=== PATIENT | female | born 1990 ===

== ENCOUNTER 2023-05-14 21:43 | Emergency (ER) | payer OTHER ==
[~2023-05-14] VITALS: Ht 165.1 cm; Wt 83.6 kg
[2023-05-14 23:42] LABS: Basophils # (auto) 0 10 ^3/uL (0-0.2); Basophils % (auto) 0.4 % (0.0-2.0); Eosinophils # (auto) 0 10 ^3/uL (0-0.8); Eosinophils % (auto) 0.2 % (0.0-7.0); Hematocrit 34.6 % (36.0-46.0); Hemoglobin 11.8 g/dL (12.2-16.2); Lymphocytes # (auto) 1.3 10 ^3/uL (0.4-5.4); Lymphocytes % (auto) 18.1 % (10.0-50.0); Mean Corpuscular Hemoglobin 30.8 pg (28.0-32.0); Mean Corpuscular Volume 90.4 fL (80.0-100.0); Monocytes # (auto) 0.5 10 ^3/uL (0-1.3); Monocytes % (auto) 6.9 % (0.0-12.0); Neutrophils # (auto) 5.2 10 ^3/uL (1.6-8.6); Neutrophils % (auto) 74.4 % (37.0-80.0); Nucleated Red Blood Cells % 0.1 %; Red Blood Cells 3.83 10^6/uL (4.0-5.20); Red Cell Distribution Width 15.3 % (11.8-14.3)
[2023-05-15 00:02] LABS: Albumin 3.7 g/dL (3.4-5.0); Potassium 4.1 mmol/L (3.5-5.1)
[2023-05-15 00:07] LABS: BUN/Creatinine Ratio 16.9 (10.0-20.0); Bilirubin, Total 0.5 mg/dL (0.2-1.0); Total Protein 7.5 g/dL (6.4-8.2)
[2023-05-15 04:28] VITALS: BP 105/69
== END 2023-05-15 04:34 | disposition home or self-care (01) ==
LOC: ER 21:43
DX: O20.0 Threatened abortion (principal); N93.9 Abnormal uterine and vaginal bleeding, unspecified; D64.9 Anemia, unspecified; Z88.6 Allergy status to analgesic agent; Z3A.01 Less than 8 weeks gestation of pregnancy
CPT/HCPCS: 36415; 76801; 76817; 80053; 84702; 85025

== ENCOUNTER → 2023-06-13 | Outpatient (CLI) | payer OTHER | END | disposition home or self-care (01) | LOC: LAB 09:49 | PROVIDERS: ATTEND Obstetrics & Gynecology | DX: O03.9 Complete or unspecified spontaneous abortion without complication (principal); Z3A.00 Weeks of gestation of pregnancy not specified | CPT/HCPCS: 36415; 84702 ==

== ENCOUNTER → 2024-10-07 | Outpatient (CLI) | payer OTHER ==
[2024-10-07 09:24] LABS: Urine Bacteria FEW /hpf (None Seen); Urine Blood 1+ /uL (Negative); Urine Clarity Turbid (Clear); Urine Color Light-Yellow (Yellow); Urine Mucus FEW (None Seen); Urine Protein, UAD Negative (Negative); Urine Specific Gravity 1.017 (1.001-1.035); Urine Urobilinogen Normal (Negative); Urine WBC 6 /hpf (0 - 5)
[2024-10-07 09:25] LABS: Basophils # (auto) 0 10 ^3/uL (0-0.2); Basophils % (auto) 0.4 % (0.0-2.0); Eosinophils # (auto) 0 10 ^3/uL (0-0.8); Eosinophils % (auto) 0.8 % (0.0-7.0); Hematocrit 31.5 % (36.0-46.0); Lymphocytes # (auto) 1.4 10 ^3/uL (0.4-5.4); Lymphocytes % (auto) 28.2 % (10.0-50.0); Mean Corpuscular Hemoglobin 24.2 pg (28.0-32.0); Mean Corpuscular Hgb Conc. 31.8 g/dL (32.0-36.0); Mean Corpuscular Volume 76.2 fL (80.0-100.0); Monocytes # (auto) 0.5 10 ^3/uL (0-1.3); Monocytes % (auto) 10.3 % (0.0-12.0); Neutrophils % (auto) 60.3 % (37.0-80.0); Nucleated Red Blood Cells % 0.1 %; Platelet Count (auto) 289 10^3/uL (140-450); Red Blood Cells 4.13 10^6/uL (4.0-5.20); Red Cell Distribution Width 17.8 % (11.8-14.3)
[2024-10-07 09:27] LABS: Partial Thromboplastin Time 24.5 SEC (24.5-34.5); Prothrombin Time 10.6 sec (9.3-11.8)
[2024-10-07 11:06] LABS: Alanine Aminotransferase 17 U/L (7-40); Albumin 4.6 g/dL (3.2-4.8); Alkaline Phosphatase 77 U/L (46-116); Anion Gap 8 (5-15); Aspartate Aminotransferase 15 U/L (13-40); BUN/Creatinine Ratio 15.5 (10.0-20.0); Blood Urea Nitrogen 11 mg/dL (9-23); Calcium 10.1 mg/dL (8.7-10.4); Carbon Dioxide 24 mmol/L (20-31); Chloride 109 mmol/L (98-107); Glucose 100 mg/dL (74-106); LDL Cholesterol 70 mg/dL (< 100); Potassium 4.3 mmol/L (3.5-5.1); Sodium 141 mmol/L (136-145); Triglycerides 45 mg/dL (< 150)
[2024-10-07 11:07] LABS: Bilirubin, Total 0.5 mg/dL (0.2-1.0); Cholesterol 161 mg/dL (< 200); HDL Cholesterol 77 mg/dL (40-59); Total Protein 7.4 g/dL (5.7-8.2)
[2024-10-07 12:47] LABS: Folate (Folic Acid) 15.16 ng/mL (>5.38)
[2024-10-08 08:06] LABS: RPR Non Reactive (Non Reactive); Thyroxine (T4) 8.3 ug/dL (4.5-12.0)
== END | disposition home or self-care (01) ==
LOC: LAB 08:50
DX: Z00.01 Encounter for general adult medical examination with abnormal findings
CPT/HCPCS: 36415; 80053; 80061; 80074; 81001; 82306; 82607; 82746; 83036; 84436; 84443; 85025; 85610; 85730; 86592; 86703

== ENCOUNTER → 2025-01-13 | Outpatient (CLI) | payer OTHER ==
[2025-01-13 08:17] LABS: Basophils # (auto) 0 10 ^3/uL (0-0.2); Basophils % (auto) 0.8 % (0.0-2.0); Eosinophils # (auto) 0 10 ^3/uL (0-0.8); Eosinophils % (auto) 1.2 % (0.0-7.0); Hematocrit 36.4 % (36.0-46.0); Hemoglobin 12.7 g/dL (12.2-16.2); Lymphocytes # (auto) 1.5 10 ^3/uL (0.4-5.4); Mean Corpuscular Hemoglobin 30.4 pg (28.0-32.0); Mean Corpuscular Hgb Conc. 34.8 g/dL (32.0-36.0); Mean Corpuscular Volume 87.4 fL (80.0-100.0); Monocytes # (auto) 0.4 10 ^3/uL (0-1.3); Monocytes % (auto) 10.1 % (0.0-12.0); Neutrophils # (auto) 1.9 10 ^3/uL (1.6-8.6); Neutrophils % (auto) 49.9 % (37.0-80.0); Nucleated Red Blood Cells % 0.3 %; Platelet Count (auto) 276 10^3/uL (140-450); Red Blood Cells 4.16 10^6/uL (4.0-5.20); Red Cell Distribution Width 21.7 % (11.8-14.3); White Blood Cell 3.8 10^3/uL (4.4-10.8)
[2025-01-13 08:28] LABS: Triglycerides 41 mg/dL (< 150)
[2025-01-13 08:29] LABS: Cholesterol 181 mg/dL (< 200); LDL Cholesterol 77 mg/dL (< 100)
[2025-01-13 08:38] LABS: HDL Cholesterol 87 mg/dL (40-59)
[2025-01-13 10:44] LABS: % Iron Saturation 21.1 % (15-50)
[2025-01-13 10:52] LABS: Folate (Folic Acid) 13.07 ng/mL (>5.38)
== END | disposition home or self-care (01) ==
LOC: LAB 07:23
PROVIDERS: ATTEND Nurse Practitioner Family
DX: E78.5 Hyperlipidemia, unspecified (principal); D64.9 Anemia, unspecified; R73.03 Prediabetes
CPT/HCPCS: 36415; 80061; 82306; 82607; 82728; 82746; 83036; 83540; 83550; 84443; 85025

== ENCOUNTER → 2025-05-11 | Outpatient (CLI) | payer OTHER ==
[2025-05-11 09:22] LABS: Basophils # (auto) 0 10 ^3/uL (0-0.2); Basophils % (auto) 0.6 % (0.0-2.0); Eosinophils # (auto) 0 10 ^3/uL (0-0.8); Eosinophils % (auto) 0.9 % (0.0-7.0); Hematocrit 35.8 % (36.0-46.0); Hemoglobin 12.3 g/dL (12.2-16.2); Lymphocytes # (auto) 1.3 10 ^3/uL (0.4-5.4); Lymphocytes % (auto) 34.4 % (10.0-50.0); Mean Corpuscular Hemoglobin 32.6 pg (28.0-32.0); Mean Corpuscular Hgb Conc. 34.4 g/dL (32.0-36.0); Mean Corpuscular Volume 94.8 fL (80.0-100.0); Monocytes # (auto) 0.3 10 ^3/uL (0-1.3); Monocytes % (auto) 9.2 % (0.0-12.0); Neutrophils # (auto) 2.1 10 ^3/uL (1.6-8.6); Neutrophils % (auto) 54.9 % (37.0-80.0); Nucleated Red Blood Cells % 0.1 %; Platelet Count (auto) 244 10^3/uL (140-450); Red Blood Cells 3.78 10^6/uL (4.0-5.20); Red Cell Distribution Width 13.5 % (11.8-14.3); White Blood Cell 3.8 10^3/uL (4.4-10.8)
[2025-05-11 09:41] LABS: Alanine Aminotransferase 17 U/L (7-40); Albumin 4.3 g/dL (3.2-4.8); Alkaline Phosphatase 67 U/L (46-116); Anion Gap 8 (5-15); Aspartate Aminotransferase 18 U/L (13-40); BUN/Creatinine Ratio 15.9 (10.0-20.0); Blood Urea Nitrogen 11 mg/dL (9-23); Carbon Dioxide 27 mmol/L (20-31); Chloride 107 mmol/L (98-107); Cholesterol 181 mg/dL (< 200); Glucose 99 mg/dL (74-106); Sodium 142 mmol/L (136-145); Total Protein 6.7 g/dL (5.7-8.2); Triglycerides 49 mg/dL (< 150)
[2025-05-11 09:42] LABS: Bilirubin, Total 0.7 mg/dL (0.2-1.0)
[2025-05-11 09:53] LABS: LDL Cholesterol 85 mg/dL (< 100)
[2025-05-11 10:00] LABS: HDL Cholesterol 83 mg/dL (40-59)
[2025-05-11 10:08] LABS: % Iron Saturation 19.1 % (15-50)
[2025-05-11 10:51] LABS: Urine Bacteria MANY /hpf (None Seen); Urine Blood 2+ /uL (Negative); Urine Clarity Turbid (Clear); Urine Color Light-Yellow (Yellow); Urine Mucus FEW (None Seen); Urine Protein, UAD Negative (Negative); Urine Specific Gravity 1.021 (1.001-1.035); Urine Squamous Epithelial Cell MOD /hpf (<5); Urine Urobilinogen Normal (Negative); Urine WBC 17 /HPF (0-5); Urine pH 5.5 (5.0-9.0)
[2025-05-11 11:27] LABS: Ferritin 10.7 ng/mL (10-291)
== END | disposition home or self-care (01) ==
LOC: LAB 08:55
PROVIDERS: ATTEND Nurse Practitioner Family
DX: E78.5 Hyperlipidemia, unspecified (principal); E55.9 Vitamin D deficiency, unspecified; D64.9 Anemia, unspecified; R73.03 Prediabetes
CPT/HCPCS: 36415; 80053; 80061; 81001; 82306; 82607; 82728; 83036; 83540; 83550; 84443; 85025

== ENCOUNTER → 2025-08-19 | Outpatient (CLI) | payer OTHER ==
[2025-08-19 13:29] LABS: Thyroid Stimulating Hormone 0.94 uIU/mL (0.55-4.78)
[2025-08-19 13:31] LABS: Follicle Stimulating Hormone 0.44 IU/L (SEE BELOW)
[2025-08-19 13:35] LABS: Alanine Aminotransferase 26 U/L (7-40); Alkaline Phosphatase 88 U/L (46-116); Anion Gap 9 (5-15); BUN/Creatinine Ratio 14.5 (10.0-20.0); Calcium 9.3 mg/dL (8.7-10.4); Carbon Dioxide 24 mmol/L (20-31); Chloride 107 mmol/L (98-107); Glucose 86 mg/dL (74-106); Potassium 4.7 mmol/L (3.5-5.1); Sodium 140 mmol/L (136-145)
[2025-08-19 13:36] LABS: Albumin 4.1 g/dL (3.2-4.8); Total Protein 6.7 g/dL (5.7-8.2)
[2025-08-19 13:38] LABS: Bilirubin, Total 0.6 mg/dL (0.2-1.0)
[2025-08-19 13:43] LABS: Beta HCG, Quantitative 120805.8 mIU/mL (1.5-4.2)
[2025-08-19 13:46] LABS: Blood Urea Nitrogen 9 mg/dL (9-23)
== END | disposition home or self-care (01) ==
LOC: LAB 11:38
PROVIDERS: ATTEND Obstetrics & Gynecology
DX: N93.9 Abnormal uterine and vaginal bleeding, unspecified (principal)
CPT/HCPCS: 36415; 80053; 82670; 83001; 83002; 84402; 84403; 84443; 84702

== ENCOUNTER 2025-09-07 07:18 | Outpatient (CLI) | payer OTHER ==
[2025-09-07 08:08] LABS: Hematocrit 36.1 % (36.0-46.0); Hemoglobin 12.5 g/dL (12.2-16.2); Mean Corpuscular Hemoglobin 32.1 pg (28.0-32.0); Mean Corpuscular Volume 92.8 fL (80.0-100.0); Nucleated Red Blood Cells % 0.1 %
== END 2025-09-07 17:00 | disposition home or self-care (01) ==
LOC: LAB 07:18
DX: Z34.80 Encounter for supervision of other normal pregnancy, unspecified trimester (principal); Z3A.00 Weeks of gestation of pregnancy not specified
CPT/HCPCS: 36415; 84702; 85025

== ENCOUNTER 2025-09-09 11:11 | Outpatient (CLI) | payer OTHER ==
[2025-09-09 12:13] LABS: Hematocrit 35.5 % (36.0-46.0); Hemoglobin 12.3 g/dL (12.2-16.2); Mean Corpuscular Hemoglobin 32.4 pg (28.0-32.0); Mean Corpuscular Volume 93.2 fL (80.0-100.0); Nucleated Red Blood Cells % 0.1 %
[2025-09-09 13:11] LABS: Alanine Aminotransferase 25 U/L (7-40); Albumin 4.0 g/dL (3.2-4.8); Alkaline Phosphatase 88 U/L (46-116); Anion Gap 8 (5-15); BUN/Creatinine Ratio 15.1 (10.0-20.0); Calcium 9.4 mg/dL (8.7-10.4); Carbon Dioxide 26 mmol/L (20-31); Chloride 103 mmol/L (98-107); Glucose 81 mg/dL (74-106); Potassium 4.2 mmol/L (3.5-5.1); Sodium 137 mmol/L (136-145); Total Protein 7.0 g/dL (5.7-8.2)
[2025-09-09 13:12] LABS: Bilirubin, Total 0.5 mg/dL (0.2-1.0)
[2025-09-09 13:13] LABS: Free T4 (Free Thyroxine) 1.23 ng/dL (0.89-1.76); Thyroid Stimulating Hormone 1.8 uIU/mL (0.55-4.78)
[2025-09-09 13:20] LABS: Amphetamine Screen, Urine Neg (NEGATIVE); Barbiturate Scree,Urine Neg (NEGATIVE); Benzodiazephine Screen, Urine Neg (NEGATIVE); Cannabinoid Screen, Urine Neg (NEGATIVE); Cocaine Screen, Urine Neg (NEGATIVE); Opiate Scree,Urine Neg (NEGATIVE); Phencyclidine Screen, Urine Neg (NEGATIVE)
[2025-09-09 13:21] LABS: Blood Urea Nitrogen 8 mg/dL (9-23)
[2025-09-09 13:33] LABS: Beta HCG, Quantitative 136161.3 mIU/mL (1.5-4.2)
[2025-09-11 05:08] LABS: Chlamydia Trachomatis, NAA Negative (Negative); Neisseria gonorrhoeae, NAA Negative (Negative)
== END 2025-09-09 17:00 | disposition home or self-care (01) ==
LOC: LAB 11:11
DX: O23.40 Unspecified infection of urinary tract in pregnancy, unspecified trimester (principal); N39.0 Urinary tract infection, site not specified; Z11.3 Encounter for screening for infections with a predominantly sexual mode of transmission; Z31.438 Encounter for other genetic testing of female for procreative management; Z36.0 Encounter for antenatal screening for chromosomal anomalies; Z3A.00 Weeks of gestation of pregnancy not specified
CPT/HCPCS: 36415; 80053; 80307; 82607; 82746; 83036; 84439; 84443; 84702; 85025; 86703; 86762; 86780; 86787; 86850; 86900; 86901; 87086; 87340; 87902

== ENCOUNTER → 2025-09-11 | Outpatient (CLI) | payer OTHER | END | disposition home or self-care (01) | LOC: LAB 07:22 | DX: Z34.80 Encounter for supervision of other normal pregnancy, unspecified trimester (principal); Z3A.00 Weeks of gestation of pregnancy not specified | CPT/HCPCS: 36415; 84702 ==

== ENCOUNTER → 2025-09-22 | Outpatient (CLI) | payer OTHER ==
[2025-09-22 08:54] LABS: Hematocrit 35.7 % (36.0-46.0); Hemoglobin 12.3 g/dL (12.2-16.2); Mean Corpuscular Hemoglobin 31.9 pg (28.0-32.0); Mean Corpuscular Volume 92.8 fL (80.0-100.0); Nucleated Red Blood Cells % 0.1 %
[2025-09-22 09:21] LABS: Iron 77.0 ug/dL (50-170)
[2025-09-22 09:24] LABS: Total Iron Binding Capacity 366.0 ug/dL (250-425)
[2025-09-22 09:25] LABS: Alanine Aminotransferase 20 U/L (7-40); Albumin 4.1 g/dL (3.2-4.8); BUN/Creatinine Ratio 12.1 (10.0-20.0); Bilirubin, Total 0.5 mg/dL (0.2-1.0); Calcium 9.3 mg/dL (8.7-10.4); Carbon Dioxide 24 mmol/L (20-31); Glucose 89 mg/dL (74-106); Potassium 4.0 mmol/L (3.5-5.1); Sodium 139 mmol/L (136-145); Total Protein 7.1 g/dL (5.7-8.2); Triglycerides 79 mg/dL (< 150)
[2025-09-22 09:26] LABS: Alkaline Phosphatase 128 U/L (46-116); Blood Urea Nitrogen 7 mg/dL (9-23); Cholesterol 203 mg/dL (< 200); HDL Cholesterol 99 mg/dL (40-59)
[2025-09-22 09:47] LABS: Anion Gap 11 (5-15); Chloride 104 mmol/L (98-107)
== END | disposition home or self-care (01) ==
LOC: LAB 08:26
PROVIDERS: ATTEND Nurse Practitioner Family
DX: E55.9 Vitamin D deficiency, unspecified (principal); D50.9 Iron deficiency anemia, unspecified; R73.03 Prediabetes
CPT/HCPCS: 36415; 80053; 80061; 82306; 82607; 82728; 82746; 83036; 83540; 83550; 83718; 84702; 85025